=== PATIENT | male | born 1940 | race Caucasian/White ===

== ENCOUNTER 2016-09-09 18:12 | Inpatient (IN) | payer MEDICARE, BC ==
[~2016-09-09] VITALS: Ht 172.7 cm; Wt 81.8 kg
[2016-09-09 18:49] LABS: HEMOGLOBIN 11.2 gm/dl (14.0-17.5); RED BLOOD COUNT 4.15 M/UL (4.20-5.50); WHITE BLOOD COUNT 7.9 K/UL (4.5-11.0)
[2016-09-10] MEDS ORDERED: IMDUR ER TAB 6060 MG PO (01:46)
[2016-09-10] MEDS ORDERED: LIPITOR TAB 2020 MG PO (01:46)
[2016-09-10] MEDS ORDERED: HYDRALAZINE HCL50 MG PO (01:47)
[2016-09-10] MEDS ORDERED: ELIQUIS5 MG PO (01:47)
[2016-09-10] MEDS ORDERED: DILTIAZEM 24HR180 MG PO (01:47)
[2016-09-10] MEDS ORDERED: PROTONIX40 MG PO (01:48)
[2016-09-10] MEDS ORDERED: PRINIVIL10 MG PO (01:49)
[2016-09-10] MEDS ORDERED: FERROUS SULFAT324 MG PO (01:49)
[2016-09-10] MEDS ORDERED: CITALOPRAM HBR20 MG PO (01:49)
[2016-09-10] MEDS ORDERED: CARDURA 2MG TAB2 MG PO (01:50)
[2016-09-10] MEDS ORDERED: NORCO 7.5-3251 EACH PO (19:26)
== END 2016-09-10 20:05 | disposition home or self-care (01) | DRG 511 ==
LOC: ER1 18:12 → M/S 21:27 → ZEROF 21:27 → M/S 21:27
PROVIDERS: Emergency Medicine; ADMIT Internal Medicine
PROC: 0PSJXZZ Reposition Left Radius, External Approach (ICD-10-PCS; principal; 2016-09-09)
PROC: 0PSJ04Z Reposition Left Radius with Internal Fixation Device, Open Approach (ICD-10-PCS; 2016-09-10)
PROC: 0RBP0ZZ Excision of Left Wrist Joint, Open Approach (ICD-10-PCS; 2016-09-10)
DX: S52.502A Unspecified fracture of the lower end of left radius, initial encounter for closed fracture (principal); I13.0 Hypertensive heart and chronic kidney disease with heart failure and stage 1 through stage 4 chronic kidney disease, or unspecified chronic kidney disease; S61.512A Laceration without foreign body of left wrist, initial encounter; M67.432 Ganglion, left wrist; I25.10 Atherosclerotic heart disease of native coronary artery without angina pectoris; I44.7 Left bundle-branch block, unspecified; I73.9 Peripheral vascular disease, unspecified; I48.91 Unspecified atrial fibrillation; F17.210 Nicotine dependence, cigarettes, uncomplicated; R55 Syncope and collapse; N18.3 Chronic kidney disease, stage 3 (moderate); W17.89XA Other fall from one level to another, initial encounter; Z95.5 Presence of coronary angioplasty implant and graft; Z79.899 Other long term (current) drug therapy; Y92.79 Other farm location as the place of occurrence of the external cause; T14.8 Other injury of unspecified body region; Z79.01 Long term (current) use of anticoagulants
CPT/HCPCS: 36415; 70450; 71010; 72125; 72170; 73080; 73090; 73100; 73110; 76000; 80053; 82962; 83690; 84484; 85025; 85610; 85730; 93005; 96365; 96375; 99285; C1713; J0690; J1100; J2001; J2250; J2270; J2370; J2405; J3010; J7120

== ENCOUNTER 2016-09-12 14:56 | Emergency (ER) | payer MEDICARE, BC ==
[~2016-09-12 14:56] MED LIST: CARDURA 2MG TAB2 MG PO; CITALOPRAM HBR20 MG PO; DILTIAZEM 24HR180 MG PO; ELIQUIS5 MG PO; FERROUS SULFAT324 MG PO; HYDRALAZINE HCL50 MG PO; IMDUR ER TAB 6060 MG PO; LIPITOR TAB 2020 MG PO; NORCO 7.5-3251 EACH PO; PRINIVIL10 MG PO; PROTONIX40 MG PO
== END 2016-09-12 17:45 | disposition home or self-care (01) ==
LOC: ER1 14:56
DX: M54.5 Low back pain (principal); R39.198 Other difficulties with micturition; K80.20 Calculus of gallbladder without cholecystitis without obstruction; N13.30 Unspecified hydronephrosis; I10 Essential (primary) hypertension; I48.91 Unspecified atrial fibrillation; Y92.009 Unspecified place in unspecified non-institutional (private) residence as the place of occurrence of the external cause; W01.0XXA Fall on same level from slipping, tripping and stumbling without subsequent striking against object, initial encounter; Z79.01 Long term (current) use of anticoagulants
CPT/HCPCS: 70450; 72131; 73110; 81001; 99284